=== PATIENT | female | born 1960 | race Caucasian/White ===

== ENCOUNTER 2016-12-25 21:38 | Emergency (ER) | payer OTHER ==
[~2016-12-25] VITALS: Ht 162.6 cm; Wt 143.5 kg
[~2016-12-25 21:38] MED LIST: CLOB-65 EXT; ROPI0.25 PO; SERT-234 PO; SYN150 PO; TRAZ50TA35 PO; TRIATAB3 PO
[2016-12-25 21:40] VITALS: TEMP 37; Ht 162.6 cm; Wt 143.5 kg
[2016-12-25 22:48] LABS: BASO % 0.2 %; BASO ABS # 0.02 K/uL (0-0.2); COMPLETE YES; EOS % 2.1 %; HEMATOCRIT 37.9 % (37-47); IG% 0.3 %; LYMPH % 31.2 %; LYMPH ABS # 2.82 K/uL (1.2-3.4); MEAN CELL VOLUME 89.6 fL (80-100); MEAN CORPUSCULAR HEMOGLOBIN 30.5 pg (25-34); MEAN PLATELET VOLUME 8.9 fL (7.4-10.4); MONO % 8.2 %; PLATELET COUNT 258 K/uL (130-400); RED BLOOD COUNT 4.23 M/uL (4.2-5.4); WHITE BLOOD COUNT 9.04 K/uL (4.8-10.8)
[2016-12-25] MEDS ORDERED: ROSU20TA22 PO (22:50)
[2016-12-25] MEDS ORDERED: WLLSR150 PO (22:50)
[2016-12-25] MEDS ORDERED: GLC500 PO (22:50)
[2016-12-25] MEDS ORDERED: TRAZ100T29 PO (22:50)
[2016-12-25 22:59] LABS: POINT OF CARE TROPONIN I < 0.030 ng/ml (0-0.045)
--- NOTE | 2016-12-25 23:03 | DIAGNOSTIC IMAGING REPORT ---
CHEST ONE VIEW PORTABLE HISTORY: Atypical CHEST PAIN COMPARISON: Chest 02/26/2015. FINDINGS: The lungs are clear. Cardiac silhouette is normal in size. No pleural effusions. No pneumothorax. Small retrocardiac lobular density favors a hiatus hernia. This remains unchanged. IMPRESSION: No significant change compared to the prior study. No acute process. Electronically signed by: Adrian Atkins M.D. 12/25/2016 11:01 PM Dictated Date/Time: 12/25/2016 11:00 PM
[2016-12-25 23:09] LABS: BUN/CREATININE RATIO 17.4 (10-20); CREATININE 0.94 mg/dl (0.60-1.20); POTASSIUM 3.4 mmol/L (3.5-5.1)
[2016-12-25 23:14] LABS: CKMB/CK RATIO 1.2 (0-3.0)
[2016-12-25 23:58] VITALS: PULSE 84; O2SAT 96
[2016-12-26 00:01] VITALS: BP 111/57
--- NOTE | 2016-12-26 02:21 | EMERGENCY ROOM VISIT NOTE ---
History Report prepared by Demetriaibyon: Katya Richardson Under the Supervision of: Dr. Jesus Massey M.D. First contact with patient: 22:20 Chief Complaint: SHOULDER PAIN Stated Complaint: NAUSEA,DIZZY,UNDER SHOULDER BLADE History of Present Illness The patient is a 56 year old female who presents to the Emergency Room with complaints of waxing and waning left shoulder pain for the past 2 days. She rates her discomfort as a 5/10 in severity and reports the pain radiates into her left upper back. She denies any recent trauma or injuries but admits she did [place] an airport [place]. She denies any personal cardiac history but admits to a family history of cardiac problems. Her Father at 61 of heart disease, and her Mother at 61 from a CVA. The patient states she became nauseous and dizzy this evening, so she decided to come to the ED for a cardiac workup considering her family history. She also complains of a cough, but states she has had this for "months". The patient denies LOC, headache, fevers, chills, diaphoresis, visual changes, neck pain, chest pain, breathing difficulties, nausea, vomiting, abdominal pain, back pain, melena, hematochezia, urinary symptoms, numbness, weakness, lymphadenopathy, rash, or other complaints. 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 A total of ten systems were reviewed and were otherwise negative. Past Medical & Surgical Medical Problems: (1) Diabetes mellitus (2) Hypercholesteremia (3) Hypertension Family History Heart disease Stroke Social History Smoking Status: Never Smoker Alcohol Use: occasionally Drug Use: none Marital Status: Housing Status: lives with family Occupation Status: retired Current/Historical Medications Scheduled Bupropion HCl (Bupropion HCl Sr), 150 MG PO BID Levothyroxine Sodium (Synthroid), 150 MCG PO DAILY Metformin HCl (Metformin HCl), 500 MG PO BID Ropinirole (Requip), 0.25 MG PO QID Rosuvastatin Calcium (Rosuvastatin Calcium), 20 MG PO HS Trazodone Hcl (Trazodone), 100 MG PO HS Triamterene/Hctz (Triamterene/Hctz 37.5-25MG), 1-2 TAB PO DAILY Allergies Coded Allergies: No Known Allergies (Unverified , 12/25/16) Physical Exam Vital Signs Date Time Temp Pulse Resp B/P (MAP) Pulse Ox O2 Delivery O2 Flow Rate FiO2 12/26/16 00:01 111/57 12/25/16 23:58 84 24 96 12/25/16 23:43 74 19 97 12/25/16 23:31 115/65 12/25/16 23:28 77 16 98 12/25/16 23:13 77 20 96 12/25/16 23:08 74 17 98 12/25/16 23:01 109/71 12/25/16 22:53 78 19 97 12/25/16 22:38 76 20 96 12/25/16 22:31 130/75 12/25/16 22:23 83 19 97 Room Air 12/25/16 22:20 77 12/25/16 22:17 125/69 12/25/16 21:40 37.0 98 18 139/87 97 Room Air Physical Exam GENERAL: Awake, alert, well-appearing, in no distress HENT: Normocephalic, atraumatic. Oropharynx unremarkable. EYES: Normal conjunctiva. Sclera non-icteric. NECK: Supple. No nuchal rigidity. FROM. No JVD. RESPIRATORY: Clear to auscultation. CARDIAC: Regular rate, normal rhythm. Extremities warm and well perfused. Pulses equal. ABDOMEN: Soft, non-distended. No tenderness to palpation. No rebound or guarding. No masses. RECTAL: Deferred. MUSCULOSKELETAL: Chest examination reveals no tenderness. The back is symmetrical on inspection without obvious abnormality. Tenderness to the left mid thoracic paraspinal muscles. Range of motion testing of the left shoulder elicits pain in the left rhomboid area. There is no CVA tenderness to palpation. No joint edema. LOWER EXTREMITIES: Calves are equal size bilaterally and non-tender. No edema. No discoloration. NEURO: Normal sensorium. No sensory or motor deficits noted. SKIN: No rash or jaundice noted. No zoster. Medical Decision & Procedures ER Provider Diagnostic Interpretation: Radiology results as stated below per my review and radiologist interpretation: CHEST ONE VIEW PORTABLE HISTORY: Atypical CHEST PAIN COMPARISON: Chest 02/26/2015. FINDINGS: The lungs are clear. Cardiac silhouette is normal in size. No pleural effusions. No pneumothorax. Small retrocardiac lobular density favors a hiatus hernia. This remains unchanged. IMPRESSION: No significant change compared to the prior study. No acute process. Electronically signed by: Adrian Atkins M.D. 12/25/2016 11:01 PM Laboratory Results 12/25/16 22:25 Red Blood Count 4.23, Mean Corpuscular Volume 89.6, Mean Corpuscular Hemoglobin 30.5, Mean Corpuscular Hemoglobin Concent 34.0, Mean Platelet Volume 8.9, Neutrophils (%) (Auto) 58.0, Lymphocytes (%) (Auto) 31.2, Monocytes (%) (Auto) 8.2, Eosinophils (%) (Auto) 2.1, Basophils (%) (Auto) 0.2, Neutrophils # (Auto) 5.24, Lymphocytes # (Auto) 2.82, Monocytes # (Auto) 0.74, Eosinophils # (Auto) 0.19, Basophils # (Auto) 0.02 12/25/16 22:25 Test 12/25/16 22:25 12/25/16 22:40 White Blood Count 9.04 K/uL (4.8-10.8) Red Blood Count 4.23 M/uL (4.2-5.4) Hemoglobin 12.9 g/dL (12.0-16.0) Hematocrit 37.9 % (37-47) Mean Corpuscular Volume 89.6 fL (80-100) Mean Corpuscular Hemoglobin 30.5 pg (25-34) Mean Corpuscular Hemoglobin Concent 34.0 g/dl (32-36) Platelet Count 258 K/uL (130-400) Mean Platelet Volume 8.9 fL (7.4-10.4) Neutrophils (%) (Auto) 58.0 % Lymphocytes (%) (Auto) 31.2 % Monocytes (%) (Auto) 8.2 % Eosinophils (%) (Auto) 2.1 % Basophils (%) (Auto) 0.2 % Neutrophils # (Auto) 5.24 K/uL (1.4-6.5) Lymphocytes # (Auto) 2.82 K/uL (1.2-3.4) Monocytes # (Auto) 0.74 K/uL (0.11-0.59) Eosinophils # (Auto) 0.19 K/uL (0-0.5) Basophils # (Auto) 0.02 K/uL (0-0.2) RDW Standard Deviation 45.0 fL (36.4-46.3) RDW Coefficient of Variation 13.7 % (11.5-14.5) Immature Granulocyte % (Auto) 0.3 % Immature Granulocyte # (Auto) 0.03 K/uL (0.00-0.02) Anion Gap 8.0 mmol/L (3-11) Est Creatinine Clear Calc Drug Dose 92.9 ml/min Estimated GFR () 77.5 Estimated GFR (Non- 66.9 BUN/Creatinine Ratio 17.4 (10-20) Calcium Level 9.0 mg/dl (8.5-10.1) Total Bilirubin 0.4 mg/dl (0.2-1) Direct Bilirubin 0.1 mg/dl (0-0.2) Aspartate Amino Transf (AST/SGOT) 16 U/L (15-37) Alanine Aminotransferase (ALT/SGPT) 24 U/L (12-78) Alkaline Phosphatase 80 U/L (45-117) Total Creatine Kinase 113 U/L (26-192) Creatine Kinase MB 1.3 ng/ml (0.5-3.6) Creatine Kinase MB Ratio 1.2 (0-3.0) Total Protein 7.1 gm/dl (6.4-8.2) Albumin 3.5 gm/dl (3.4-5.0) Lipase 160 U/L (73-393) Bedside D-Dimer 194 ng/mlFEU (0-450) Bedside Troponin I < 0.030 ng/ml (0-0.045) Laboratory results reviewed by me ECG Indication: back/shoulder pain Rate (beats per minute): 83 Rhythm: normal sinus Findings: no acute ischemic change, no ectopy ED Course 2230: The patient was evaluated in room A2. A complete history and physical exam was performed. 2348: I reevaluated the patient. She feels well and is ready to go home. I discussed her results and discharge instructions and she verbalized complete understanding and agreement. Medical Decision Triage Nursing notes reviewed. The patient's presentation and history were concerning for left-sided back pain and a family history of coronary disease. Etiologies such as cardiac ischemia, aortic dissection, pulmonary embolism, pneumonia, pneumothorax, musculoskeletal, infections, gastrointestinal, as well as others were entertained. The patient was evaluated. She had in her musculature on physical examination. ECG was performed and was unremarkable. Chest x-ray was negative. The patient has had symptoms that were constant for several days. Blood work was obtained. This was unremarkable. A d-dimer was negative. Cardiac biomarkers were negative. Given the duration of symptoms, negative laboratory testing, and her physical examination this appears to be musculoskeletal. I discussed conservative management with the patient. She felt much relief after her tests were negative. She will take it easy. She will follow-up closely in the office. If she worsens in any way or any new symptoms develop she will be back. I gave my usual and customary discussion regarding this issue. By the evaluation outlined above other emergent etiologies such as those listed in the differential, as well as others, were deemed relatively unlikely. The patient was educated about the findings as listed above. All questions were answered and the patient was pleased with the treatment. Return instructions were outlined and the patient was discharged in stable condition. The patient was referred to her PCP for follow-up for a recheck of the current condition. Medication Reconcilliation Current Medication List: was personally reviewed by me Blood Pressure Screening Patient's blood pressure: Normal blood pressure Blood pressure disposition: Did not require urgent referral Impression Primary Impression: Upper back pain on left side Scribe Attestation The scribe's documentation has been prepared under my direction and personally reviewed by me in its entirety. I confirm that the note above accurately reflects all work, treatment, procedures, and medical decision making performed by me. Departure Information Dispostion Home / Self-Care Referrals Kevin Sagastume, D.O. (PCP) Patient Instructions [facility] Additional Instructions Warm compresses for 20 minutes at a time four times daily for 2-3 days. Ibuprofen(Motrin, Advil) may be used for fever or pain. Use 600mg every six hours as needed. Take with food. Avoid using more than 2400mg in a 24 hour period. Do not use 2400mg per day for more than three consecutive days without physician direction. Prolonged inappropriate use can lead to stomach upset or ulcers. (AND/OR) Acetaminophen(Tylenol) may be used for fever or pain. Use 1000mg every six hours as needed. Avoid using more than 4000mg in a 24 hour period. Rest and drink plenty of fluids as tolerated. Continue current medications. Avoid strenuous activities and anything that worsens your pain. Resume normal activities once your symptoms resolve. Return to the ER immediately for worsening or persistent chest pain, abdominal pain, vomiting, fevers, chest pains, rash, difficulty breathing, worsening of your condition, or as needed. Follow up with your primary physician in 2-3 days for a recheck of your current condition.
== END 2016-12-26 00:13 | disposition home or self-care (01) ==
LOC: C.EDB 21:39 → C.EDA 12-26 00:13
DX: M54.6 Pain in thoracic spine (principal); R42 Dizziness and giddiness; E11.9 Type 2 diabetes mellitus without complications; I10 Essential (primary) hypertension; E78.00 Pure hypercholesterolemia, unspecified; Z82.3 Family history of stroke; Z79.84 Long term (current) use of oral hypoglycemic drugs; Z79.899 Other long term (current) drug therapy

== ENCOUNTER → 2017-06-15 | Day surgery (SDC) | payer BC, OTHER ==
[2017-06-07 14:43] VITALS: BMI 87.0
--- NOTE | 2017-06-07 15:11 | PAT Medication Instructions ---
Service Date Jun 07, 2017. Current Home Medication List Aspirin (Aspirin Ec), 81 MG PO QAM Vvjhccz-Gbtyfoptqojnp-Macmgzeg (Pamprin Max), 1 TAB PO QD PRN for Migraine Bupropion HCl (Bupropion HCl Sr), 150 MG PO BID Levothyroxine Sodium (Synthroid), 150 MCG PO QAM Metformin HCl (Metformin HCl), 500 MG PO BID Naproxen (Aleve), 440 MG PO QD PRN for Pain Ropinirole (Requip), 5 MG PO BID Rosuvastatin Calcium (Rosuvastatin Calcium), 20 MG PO HS Sertraline (Zoloft), 100 MG PO QAM Trazodone Hcl (Trazodone), 100 MG PO HS Triamterene/Hctz (Triamterene/Hctz 37.5-25MG), 1 TAB PO QAM Medication Instructions For Your Scheduled Surgery -Contact your surgeon for instructions for: Aspirin (Aspirin Ec), 81 MG PO QAM Qjxgaqq-Cqxbdcbogpdaf-Xohikfdg (Pamprin Max), 1 TAB PO QD PRN for Migraine Naproxen (Aleve), 440 MG PO QD PRN for Pain - Hold the following medications 24 hours prior to surgery: Ropinirole (Requip), 5 MG PO BID - Hold the following medications the morning of surgery: Metformin HCl (Metformin HCl), 500 MG PO BID Triamterene/Hctz (Triamterene/Hctz 37.5-25MG), 1 TAB PO QAM - Take the following medications the morning of surgery with a sip of water: Bupropion HCl (Bupropion HCl Sr), 150 MG PO BID Levothyroxine Sodium (Synthroid), 150 MCG PO QAM Sertraline (Zoloft), 100 MG PO QAM - Take the following medications as scheduled the night before surgery: Bupropion HCl (Bupropion HCl Sr), 150 MG PO BID Metformin HCl (Metformin HCl), 500 MG PO BID Rosuvastatin Calcium (Rosuvastatin Calcium), 20 MG PO HS Trazodone Hcl (Trazodone), 100 MG PO HS If you have any questions please call us at [phone] or [phone] or [phone]
[2017-06-07 16:09] LABS: BASO % 0.2 %; BASO ABS # 0.01 K/uL (0-0.2); EOS % 2.6 %; EOS ABS # 0.15 K/uL (0-0.5); HEMATOCRIT 38.4 % (37-47); HEMOGLOBIN 12.9 g/dL (12.0-16.0); IG# 0.03 K/uL (0.00-0.02); LYMPH % 36.7 %; LYMPH ABS # 2.11 K/uL (1.2-3.4); MEAN CELL VOLUME 89.9 fL (80-100); MEAN CORPUSCULAR HEMOGLOBIN 30.2 pg (25-34); MEAN CORPUSCULAR HGB CONC 33.6 g/dl (32-36); MEAN PLATELET VOLUME 9.1 fL (7.4-10.4); MONO % 5.2 %; NEUT % 54.8 %; NEUT ABS # 3.15 K/uL (1.4-6.5); PLATELET COUNT 261 K/uL (130-400); RED CELL DISTRIBUTION WIDTH CV 13.5 % (11.5-14.5); RED CELL DISTRIBUTION WIDTH SD 44.3 fL (36.4-46.3); WHITE BLOOD COUNT 5.75 K/uL (4.8-10.8)
[2017-06-07 16:48] LABS: CALCIUM 8.3 mg/dl (8.5-10.1); CREATININE 0.95 mg/dl (0.60-1.20); POTASSIUM 3.6 mmol/L (3.5-5.1)
[~2017-06-15] VITALS: Ht 162.6 cm; Wt 152.1 kg
[~2017-06-15] MED LIST changes: +ASPI81TA28 PO; +ASPITAB PO; +ATROPINE SULFATE 0.1 MG/ML 5ML SYR IV PRN; -CLOB-65 EXT; +DEXAMETHASONE SOD INJ 4 MG/ML VIAL ONE; +EpHEDrine SULFATE INJ 50 MG/ML AMP IV PRN; +FENTANYL CITRATE INJ 50 MCG/1 ML 2 ML VIAL IV PRN; +FENTANYL CITRATE INJ 50 MCG/1 ML 2 ML VIAL ONE; +GLC500 PO; +HYDROmorphone INJ 2 MG/ML SYR/VIAL IV PRN; +IBUP600T44 PO; +IBUPROFEN 600 MG TAB PO PRN; +KETOROLAC TROMETHAMINE 30 MG/ML VIAL ONE; +LABETALOL HCL IV 5 MG/ML 20ML IV PRN; +LACTATED RINGER'S 1000ML 1,000 ML IV SCH; +LIDOCAINE HCL 2% 2 ML VIAL (20MG/ML) ONE; +MIDAZOLAM HCL 1 MG/ML 2ML VIAL ONE; +NAPR1TAB9 PO; +ONDANSETRON INJ 2 MG/ML 2 ML VIAL IV PRN; +ONDANSETRON INJ 2 MG/ML 2 ML VIAL ONE; +OXYCODONE/ACETAMINOPHEN 5-325 TAB PO PRN; +PHENYLEPHRINE 100MCG/ML 5ML SYR IV PRN; +PROMETHAZINE HCL INJ 12.5 MG in SODIUM CHLORIDE 0.9% 50ML 50 ML IV PRN; +PROPOFOL IV EMULSION 10 MG/ML 20 ML VIAL IV ONE; +ROCURONIUM BROMIDE 10 MG/ML 5 ML VIAL IV ONE; +ROSU20TA33 PO; +SODIUM CHLORIDE 0.9% 1000ML 1,000 ML IV SCH; +SUCCINYLCHOLINE CHLORIDE 20 MG/ML 10 ML VIAL IV ONE; +TRAZ100T29 PO; -TRAZ50TA35 PO; +WLLSR150 PO
[2017-06-15 05:38] VITALS: BP 152/67; PULSE 70; TEMP 36.8; O2SAT 96; Ht 162.6 cm; Wt 152.1 kg
[2017-06-15 06:11] LABS: HEMATOCRIT 38.3 % (37-47); HEMOGLOBIN 12.6 g/dL (12.0-16.0); MEAN CELL VOLUME 89.3 fL (80-100); MEAN CORPUSCULAR HEMOGLOBIN 29.4 pg (25-34); MEAN PLATELET VOLUME 8.8 fL (7.4-10.4); PLATELET COUNT 234 K/uL (130-400); RED CELL DISTRIBUTION WIDTH CV 13.5 % (11.5-14.5); RED CELL DISTRIBUTION WIDTH SD 44.4 fL (36.4-46.3); WHITE BLOOD COUNT 6.24 K/uL (4.8-10.8)
[2017-06-15 06:16] LABS: MEAN CORPUSCULAR HGB CONC 32.9 g/dl (32-36)
--- NOTE | 2017-06-15 06:51 | History & Physical Bridge Note ---
H&P Re-Evaluation Bridge Note: I have examined the patient, reviewed the History & Physical and in the interval since the performance of the History & Physical I have noted the following changes of clinical significance: No changes noted
--- NOTE | 2017-06-15 07:40 | [facility] Post Operative Brief Note ---
Immediate Operative Summary Operative Date Jun 15, 2017. Pre-Operative Diagnosis -Postmenopausal bleeding -thickened endometrium -complex hyperplasia with atypia Post-Operative Diagnosis -Postmenopausal bleeding -thickened endometrium -complex hyperplasia with atypia -endometrial polyps Procedure(s) Performed Hysteroscopy, Dilation Curettage, Myosure Polypectomy Surgeon Dr. Mike Hernandez [employer] Supervisor Surgeon(s) none Estimated Blood Loss 5ml Findings Consistent with Post-Op Diagnosis Fluids (cc crystalloids) 600 Specimens Permanent Specimen: A.) Endometrial Polyps B.) Endometrial Curretting Drains None Anesthesia Type General Complication(s) none Disposition Accompanied Pt To Recover: no Disposition: Recovery Room / PACU
--- NOTE | 2017-06-15 07:44 | Discharge Instructions ---
Discharge Instructions Date of Service Jun 15, 2017. Visit Reason for Visit: Complex Hyperplasia With Atypia Discharge Discharge Diagnosis / Problem: s/p D&C, hysteroscopy, polypectomy Discharge Goals Goal(s): Decrease discomfort Activity Recommendations Activity Limitations: per Instructions/Follow-up section Anesthesia . Post Anesthesia Instructions: If you have had General Anesthesia or IV Sedation: * Do not drive today. * Resume driving when surgeon permits. * Do not make important decisions or sign legal documents today. * Call surgeon for: 1. Temperature elevations greater than 101 degrees F. 2. Uncontrollable pain. 3. Excessive bleeding. 4. Persistent nausea and vomiting. 5. Medication intolerance (nausea, vomiting or rash). * For nausea and vomiting use only clear liquids such as: tea, soda, bouillon until nausea subsides, then gradually increase diet as tolerated. * If you have any concerns or questions, call your surgeon's office. If physician is unavailable and it is an emergency, call 911 or go to the nearest emergency room. . Instructions / Follow-Up Instructions / Follow-Up ACTIVITY RECOMMENDATIONS: * Avoid tampons, douching, hot tubs, pools, and intercourse until bleeding has stopped. * May shower as usual. * No strenuous activity for 24-48 hours. After 24-48 hours, you can do anything you feel like doing (driving and sports are okay). RETURN TO SCHOOL/WORK: * You may return to school or work after 24 hours unless specified by your physician. DIET: * Resume previous diet. MEDICATIONS: Resume previous medications unless instructed otherwise by your surgeon. Ibuprofen 200mg 2-3 tablets every 4-6 hours as needed --OR-- Aleve 2 tablets every 8-12 hours as needed for post-operative discomfort Medications are over the counter. Tylenol may be used if above medications are contraindicated or not preferred. Medication should be taken with food or milk. do not take on an empty stomach. SPECIAL CARE INSTRUCTIONS: * Check temperature twice daily for one week. Report any elevation over 101 degrees. * Call office if you experience increased pelvic pain or discomfort not relieved by pain medicine, if you have foul smelling vaginal discharge, if you have bleeding that is heavier than a normal menstrual flow. If you are changing a maxi pad every 1- 2 hours, this is too heavy. vaginal spotting is normal for 1-2 weeks. FOLLOW UP VISIT: Call your doctor's office for a post-operative visit. Diet Recommendations Recommended Home Diet: no limitations, resume previous diet Procedures Procedures Performed: Hysteroscopy, Dilation Curettage, Myosure Polypectomy Pending Studies Studies pending at discharge: no Medical Emergencies . Who to Call and When: Medical Emergencies: If at any time you feel your situation is an emergency, please call 911 immediately. . Non-Emergent Contact Non-Emergency issues call your: Primary Care Provider, Supervisory Clerk . . "Provider Documentation" section prepared by Mike Hernandez. .
--- NOTE | 2017-06-15 08:14 | OPERATIVE REPORT ---
DATE OF OPERATION: 06/15/2017 PREOPERATIVE DIAGNOSES: 1. Postmenopausal bleeding. 2. Thickened endometrium. 3. Complex hyperplasia with atypia. POSTOPERATIVE DIAGNOSES: 1. Postmenopausal bleeding. 2. Thickened endometrium. 3. Complex hyperplasia with atypia. 4. Endometrial polyps. OPERATIVE PROCEDURE: Hysteroscopy, dilation and curettage, and MyoSure polypectomy. SURGEON: Dr. Hernandez. PYROTECHNIC ASSEMBLER: None. ANESTHESIA: General. ESTIMATED BLOOD LOSS: 5 mL IV FLUIDS: 600 mL crystalloid. URINE OUTPUT: 50 mL clear yellow urine. SPECIMENS: Endometrial polyps and endometrial curettings to pathology. DRAINS: None. COMPLICATIONS: None. DISPOSITION: Recovery room. OPERATIVE FINDINGS: Upon bimanual exam, uterus was at midline and freely mobile. Bilateral adnexa unable to be palpated due to the patient's habitus. Uterus sounded to 11 cm. Upon hysteroscopic exam, there were anterior and posterior endometrial polyps which were successfully removed using the MyoSure. Bilateral tubal ostia were clearly visualized. There were no submucosal fibroids noted. A moderate amount of endometrial tissue was obtained upon sharp curettage. The endometrial curettings and polyps were sent to pathology. Excellent hemostasis was noted. The patient tolerated the procedure well and was sent to recovery with stable vital signs. OPERATIVE PROCEDURE IN DETAIL: The patient was taken to the operating room where general anesthesia was administered. Once anesthesia was found to be adequate, the patient was placed in dorsal lithotomy position and was prepped and draped in a manner appropriate for the procedure. The bladder was then drained of clear yellow urine. A weighted speculum was then placed into the vagina and the anterior lip of the cervix was grasped with a single tooth tenaculum. The uterus was then sounded to 11 cm. The hysteroscope was then introduced into the endometrial cavity and a thorough examination was then performed. It was noted that there were endometrial polyps located at the anterior fundal wall and posterior wall of the cavity. MyoSure tool was then introduced into the cavity and the polyps were removed with the MyoSure tool. Once the polyps were removed, the hysteroscope and MyoSure were removed from the endometrial cavity. Utilizing Sona dilators, the cervix was then dilated further, and utilizing a medium Johnson curette, a thorough curettage of the endometrial cavity was performed, obtaining a moderate amount of endometrial tissue which was sent to pathology. At this point, the procedure was found to be complete. All instruments were removed from the vagina. Excellent hemostasis was noted. All sponge and instrument counts were found to be correct x2. The patient tolerated the procedure well and was sent to recovery with stable vital signs. I attest to the content of the Intraoperative Record and any orders documented therein. Any exception s are noted below.
--- NOTE | 2017-06-15 08:33 | Anesthesiology Progress Note ---
Anesthesia Post Op Note Date & Time Jun 15, 2017 at 08:33 Vital Signs Pain Intensity: 0 Vital Signs Past 12 Hours Date Time Temp Pulse Resp B/P (MAP) Pulse Ox O2 Delivery O2 Flow Rate FiO2 06/15/17 08:30 36.1 74 18 130/75 94 Room Air 06/15/17 08:20 75 22 130/73 93 Room Air 06/15/17 08:10 71 18 116/69 99 Oxymask 10 06/15/17 08:00 75 20 124/79 96 Oxymask 10 06/15/17 07:50 36.2 81 21 172/94 94 Oxymask 10 06/15/17 05:38 36.8 70 18 152/67 (95) 96 Room Air Notes Mental Status: alert / awake / arousable, participated in evaluation Pt Amnestic to Procedure: Yes Nausea / Vomiting: adequately controlled Pain: adequately controlled Airway Patency, RR, SpO2: stable & adequate BP & HR: stable & adequate Hydration State: stable & adequate Anesthetic Complications: no major complications apparent Awake, doing well, no complaints. VSS.
[2017-06-15 08:35] VITALS: BP 141/65; PULSE 72; TEMP 36.5; O2SAT 91
[2017-06-15 09:05] VITALS: BP 132/56; PULSE 71; O2SAT 93
[2017-06-15 09:35] VITALS: BP 137/67; PULSE 76; TEMP 37; O2SAT 95
== END | disposition home or self-care (01) ==
LOC: C.ACU 04:47
PROVIDERS: ATTEND Obstetrics & Gynecology
DX: N95.0 Postmenopausal bleeding (principal); N85.02 Endometrial intraepithelial neoplasia [EIN]; N84.0 Polyp of corpus uteri; R93.8 Abnormal findings on diagnostic imaging of other specified body structures; F32.9 Major depressive disorder, single episode, unspecified; I10 Essential (primary) hypertension; E03.9 Hypothyroidism, unspecified; G47.33 Obstructive sleep apnea (adult) (pediatric); M19.90 Unspecified osteoarthritis, unspecified site; G25.81 Restless legs syndrome; Z80.49 Family history of malignant neoplasm of other genital organs; Z83.3 Family history of diabetes mellitus; Z82.49 Family history of ischemic heart disease and other diseases of the circulatory system; Z79.899 Other long term (current) drug therapy; Z79.84 Long term (current) use of oral hypoglycemic drugs

== ENCOUNTER 2017-07-27 08:20 | Inpatient (IN) | payer BC, OTHER ==
[2017-07-12 10:16] VITALS: BMI 57.0
[~2017-07-27] VITALS: Ht 162.6 cm; Wt 152.0 kg
[2017-07-27] VITALS (8 sets, daily range): BP systolic 103–153; BP diastolic 60–83; PULSE 60–100; TEMP 36.3–36.8; O2SAT 90–97; Ht 162.6 cm; Wt 152.0 kg
[~2017-07-27 08:20] MED LIST changes: -ATROPINE SULFATE 0.1 MG/ML 5ML SYR IV PRN; +CEFAZOLIN 3000MG IV PUSH 22.5 ML IV SCH; -DEXAMETHASONE SOD INJ 4 MG/ML VIAL ONE; -EpHEDrine SULFATE INJ 50 MG/ML AMP IV PRN; -FENTANYL CITRATE INJ 50 MCG/1 ML 2 ML VIAL IV PRN; -FENTANYL CITRATE INJ 50 MCG/1 ML 2 ML VIAL ONE; -HYDROmorphone INJ 2 MG/ML SYR/VIAL IV PRN; -IBUP600T44 PO; -IBUPROFEN 600 MG TAB PO PRN; -KETOROLAC TROMETHAMINE 30 MG/ML VIAL ONE; -LABETALOL HCL IV 5 MG/ML 20ML IV PRN; -LIDOCAINE HCL 2% 2 ML VIAL (20MG/ML) ONE; -MIDAZOLAM HCL 1 MG/ML 2ML VIAL ONE; -NAPR1TAB9 PO; -ONDANSETRON INJ 2 MG/ML 2 ML VIAL IV PRN; -ONDANSETRON INJ 2 MG/ML 2 ML VIAL ONE; -OXYCODONE/ACETAMINOPHEN 5-325 TAB PO PRN; -PHENYLEPHRINE 100MCG/ML 5ML SYR IV PRN; -PROMETHAZINE HCL INJ 12.5 MG in SODIUM CHLORIDE 0.9% 50ML 50 ML IV PRN; -PROPOFOL IV EMULSION 10 MG/ML 20 ML VIAL IV ONE; -ROCURONIUM BROMIDE 10 MG/ML 5 ML VIAL IV ONE; -SODIUM CHLORIDE 0.9% 1000ML 1,000 ML IV SCH; -SUCCINYLCHOLINE CHLORIDE 20 MG/ML 10 ML VIAL IV ONE
[2017-07-27] MEDS ORDERED: ACETAMINOPHEN 1000 MG/100 ML IV IV ONE (08:58)
[2017-07-27 09:32] LABS: BASO % 0.4 %; BASO ABS # 0.02 K/uL (0-0.2); EOS % 2.3 %; EOS ABS # 0.13 K/uL (0-0.5); HEMATOCRIT 39.7 % (37-47); HEMOGLOBIN 13.1 g/dL (12.0-16.0); IG# 0.01 K/uL (0.00-0.02); LYMPH % 32.3 %; LYMPH ABS # 1.79 K/uL (1.2-3.4); MEAN CELL VOLUME 89.4 fL (80-100); MEAN CORPUSCULAR HEMOGLOBIN 29.5 pg (25-34); MEAN PLATELET VOLUME 8.9 fL (7.4-10.4); MONO % 7.2 %; NEUT % 57.6 %; NEUT ABS # 3.19 K/uL (1.4-6.5); PLATELET COUNT 225 K/uL (130-400); RED CELL DISTRIBUTION WIDTH CV 13.2 % (11.5-14.5); RED CELL DISTRIBUTION WIDTH SD 42.8 fL (36.4-46.3); WHITE BLOOD COUNT 5.54 K/uL (4.8-10.8)
[2017-07-27] MEDS ORDERED: ONDANSETRON INJ 2 MG/ML 2 ML VIAL IV PRN ×2 (09:45→13:30)
[2017-07-27] MEDS ORDERED: EpHEDrine SULFATE INJ 50 MG/ML AMP IV PRN (09:45)
[2017-07-27] MEDS ORDERED: ATROPINE SULFATE 0.1 MG/ML 5ML SYR IV PRN (09:45)
[2017-07-27] MEDS ORDERED: FENTANYL CITRATE INJ 50 MCG/1 ML 2 ML VIAL IV PRN (09:45)
[2017-07-27] MEDS ORDERED: FENTANYL CITRATE INJ 50 MCG/1 ML 2 ML VIAL ONE (10:03)
[2017-07-27] MEDS ORDERED: MIDAZOLAM HCL 1 MG/ML 2ML VIAL ONE (10:03)
[2017-07-27] MEDS ORDERED: BUPIVACAINE 0.5 % 5 MG/1 ML MPF 30ML VIAL ONE (10:31)
[2017-07-27] MEDS ORDERED: MINERAL OIL LIGHT 10 ML BTL ONE (10:31)
[2017-07-27] MEDS ORDERED: HYDROmorphone INJ 2 MG/ML SYR/VIAL ONE (11:31)
[2017-07-27] MEDS ORDERED: ROCURONIUM BROMIDE 10 MG/ML 5 ML VIAL ONE (11:41)
[2017-07-27] MEDS ORDERED: EpHEDrine SULFATE 50MG/5ML SYR ONE (11:41)
[2017-07-27] MEDS ORDERED: DEXAMETHASONE SOD INJ 4 MG/ML VIAL ONE (11:41)
[2017-07-27] MEDS ORDERED: GLYCOPYRROLATE INJ 0.2 MG/ML VIAL ONE ×2 (11:41→13:16)
[2017-07-27] MEDS ORDERED: LIDOCAINE HCL 2% 2 ML VIAL (20MG/ML) ONE (11:41)
[2017-07-27] MEDS ORDERED: ONDANSETRON INJ 2 MG/ML 2 ML VIAL ONE ×2 (11:41→13:03)
[2017-07-27] MEDS ORDERED: PROPOFOL IV EMULSION 10 MG/ML 20 ML VIAL ONE ×2 (11:41→11:43)
[2017-07-27] MEDS ORDERED: METHYLENE BLUE 0.5% 10 ML VIAL ONE (12:28)
[2017-07-27] MEDS ORDERED: NEOSTIGMINE METHYLSULFATE 5 MG/5 ML SYR ONE (13:16)
--- NOTE | 2017-07-27 13:24 | [facility] Post Operative Brief Note ---
Immediate Operative Summary Operative Date July 27, 2017. Pre-Operative Diagnosis Post menopausal uterine bleeding, Complex endometrial Hyperplasia with atypia Post-Operative Diagnosis Same Procedure(s) Performed Total Laparoscopic Hysterectomy with Bilateral Salpingo-Oophorectomy; Cystoscopy Surgeon Dr Hernandez Certified Nurse Practitioner Surgeon(s) Dr Ricci/ Dr Huston Estimated Blood Loss 50ML Findings Consistent with Post-Op Diagnosis Fluids (cc crystalloids) 1300 Specimens A. uterus, bilateral fallopian tubes and ovaries, cervix Drains Perera To Galliano Anesthesia Type General Complication(s) none Disposition Accompanied Pt To Recover: no Disposition: Recovery Room / PACU
[2017-07-27] MEDS ORDERED: IBUPROFEN 600 MG TAB PO PRN (13:30)
[2017-07-27] MEDS ORDERED: SENNA 8.6 MG TAB PO PRN (13:30)
[2017-07-27] MEDS ORDERED: OXYCODONE/ACETAMINOPHEN 5-325 TAB PO PRN (13:30)
[2017-07-27] MEDS ORDERED: BISACODYL 10 MG SUPP PR PRN (13:30)
[2017-07-27] MEDS ORDERED: MEPERIDINE HCL 50 MG/ML CARP IV PRN ×2 (13:30)
[2017-07-27] MEDS ORDERED: KETOROLAC TROMETHAMINE 30 MG/ML VIAL IV. PRN (13:30)
[2017-07-27] MEDS ORDERED: MAGNESIUM HYDROXIDE SUSP 30 ML UDC PO PRN (13:30)
--- NOTE | 2017-07-27 14:14 | Anesthesiology Progress Note ---
Anesthesia Post Op Note Date & Time July 27, 2017 at 14:14 Vital Signs Pain Intensity: 0 Vital Signs Past 12 Hours Date Time Temp Pulse Resp B/P (MAP) Pulse Ox O2 Delivery O2 Flow Rate FiO2 07/27/17 14:04 63 24 95 07/27/17 14:04 63 24 07/27/17 13:59 61 17 100 07/27/17 13:59 60 17 07/27/17 13:56 148/70 07/27/17 13:54 61 20 07/27/17 13:54 61 20 97 07/27/17 13:53 60 18 07/27/17 13:53 62 18 98 07/27/17 13:51 137/79 07/27/17 13:48 60 12 07/27/17 13:48 60 12 156/82 97 07/27/17 13:43 69 12 07/27/17 13:43 73 12 97 07/27/17 13:41 141/74 07/27/17 13:38 155/85 07/27/17 13:38 36.0 74 16 155/85 96 Oxymask 10 07/27/17 09:03 36.8 64 18 140/82 (101) 97 Room Air Notes Mental Status: alert / awake / arousable, participated in evaluation Pt Amnestic to Procedure: Yes Nausea / Vomiting: adequately controlled Pain: adequately controlled Airway Patency, RR, SpO2: stable & adequate BP & HR: stable & adequate Hydration State: stable & adequate Anesthetic Complications: no major complications apparent
--- NOTE | 2017-07-27 14:34 | OPERATIVE REPORT ---
DATE OF OPERATION: 07/27/2017 PREOPERATIVE DIAGNOSES: 1. Postmenopausal uterine bleeding. 2. Complex endometrial hyperplasia with atypia. POSTOPERATIVE DIAGNOSES: 1. Postmenopausal uterine bleeding. 2. Complex endometrial hyperplasia with atypia. OPERATIVE PROCEDURE: Total laparoscopic hysterectomy with bilateral salpingo-oophorectomy and cystoscopy. SURGEON: Mike Hernandez DO ASSISTANTS: Kb Ricci M.D. and Joslyn Huston M.D. ANESTHESIA: General. ESTIMATED BLOOD LOSS: 50 mL. IV FLUIDS: 1300 mL crystalloids. URINE OUTPUT: 250 mL clear yellow urine. SPECIMENS: Cervix, uterus and bilateral fallopian tubes and ovaries. DRAINS: Perera to gravity. COMPLICATIONS: None. DISPOSITION: To Recovery room. OPERATIVE FINDINGS: Upon laparoscopic examination, uterus midline and freely mobile. Bilateral tubes and ovaries were grossly normal. The cervix, uterus and bilateral tubes and ovaries were successfully removed laparoscopically. Once the vaginal cuff was closed, the Anesthesia was instructed to push methylene blue. A cystoscopy was performed noting no injury to the bladder wall. Bilateral ureteral openings spilled blue-tinged urine indicating bilateral ureters were intact. The patient tolerated the procedure well and was sent to recovery with stable vital signs. OPERATIVE PROCEDURE IN DETAIL: The patient was taken to the operating room where general anesthesia was administered. Once the anesthesia was found to be adequate, the patient was placed in a dorsal lithotomy position and was prepped and draped in a manner appropriate for the procedure. A weighted speculum was then placed into vagina and the anterior lip of the cervix was grasped with a single tooth tenaculum. A large VCare uterine manipulator was then placed within the uterus in an anteverted fashion and was suture ligated to the cervix at the 12 o'clock and 6 o'clock position with 0 Vicryl suture. Once the VCare was then placed, all instruments were removed from the vagina, a sterile Perera catheter was placed within the bladder and remained indwelling throughout the entire procedure. At this point, the patient was ready for laparoscopic portion of procedure. Attention was directed towards the abdomen where 0.5% Marcaine was injected below the umbilicus and an 11 mm skin incision was made in a horizontal fashion. A Veress needle was then placed within the abdomen. Normal saline was injected with no fecal content aspirated. Pneumoperitoneum was then created. The Veress needle was then removed and a 12-mm trocar was then placed in the abdomen under direct laparoscopic visualization. The patient was then placed in a steep Trendelenburg position and the bowel was displaced superiorly away from the pelvis. A second 5-mm skin incision was made on the left side of the abdomen and a second 5-mm trocar was placed within the abdomen under direct laparoscopic visualization. A third 11-mm skin incision made on the right side of the abdomen and a third 11-mm trocar was then placed within the abdomen under direct laparoscopic visualization. After all three trocars were in place, a thorough examination of the abdomen and pelvis was then performed. Attention was then directed towards the right adnexa where the right infundibulopelvic ligament was cauterized and transected, continued inferiorly through the round ligament and broad ligament, cauterized and transected as we continued inferiorly. The broad ligament was then and the anterior leaf of the broad ligament was cauterized and transected across the lower uterus. Attention was then directed towards the left adnexa, which likewise the left infundibulopelvic ligament was cauterized and transected, continued inferiorly through the round ligament and broad ligament, cauterized and then transected as we continued inferiorly. The broad ligament was then and the anterior leaf of the broad ligament was cauterized and transected across the lower uterine segment completing the bladder flap. The bladder was then pushed away from the lower uterine segment. Bilateral ascending uterine arteries were cauterized and transected, continued inferiorly through the cardinal-uterosacral complex, cauterizing and transecting as we continued inferiorly. Once we were at the level of the [facility] uterine manipulator, the cervix was amputated circumferentially with the LigaSure. The entire specimen, the cervix, uterus and bilateral tubes and ovaries were removed from the vagina. A sterile glove was then placed within the vagina to maintain a pneumoperitoneum. The vaginal cuff was then closed with 0 Polysorb suture with the EndoStitch laparoscopically in a continuous locking fashion. Excellent hemostasis was noted. Anesthesia was then instructed to push methylene blue. A second layer of 0 Polysorb suture was used to reapproximate the peritoneum in continuous running fashion. The entire pelvis was then copiously irrigated with saline solution. Excellent hemostasis was noted. At this point, all instruments were removed from the abdomen and as much CO2 gas was allowed to percolate through the open cannulas. Attention was then directed towards perineum where the glove was removed from the vagina along with the Perera catheter was removed from the bladder. A cystoscope was then introduced into the bladder and a thorough examination was performed noting no injury or suture within the bladder wall. Bilateral ureteral openings were identified and noted to spill blue-tinged urine indicating bilateral ureters were intact. At this point, the cystoscope was removed. A second sterile Perera catheter was then placed within the bladder. Attention was then redirected towards the abdomen where all three trocars were removed from the abdomen. The fascia of the 11 mm incisions were reapproximated with 0 Vicryl suture in a [id number] interrupted fashion. Skin was then closed with 4-0 Monocryl in a subcuticular fashion. All three incisions were noted to be hemostatic. All sponge, instrument and needle counts found to be correct x2. The patient tolerated the surgery well and was sent to recovery with stable vital signs. I attest to the content of the Intraoperative Record and any orders documented therein. Any exception s are noted below.
[2017-07-27] MEDS ORDERED: LACTATED RINGER'S 1000ML 1,000 ML IV SCH (15:07)
[2017-07-27] MEDS: METFORMIN HCL 500 MG TAB PO SCH (17:09)
[2017-07-27 19:16] LABS: HEMATOCRIT 39.7 % (37-47); HEMOGLOBIN 13.4 g/dL (12.0-16.0)
[2017-07-27] MEDS: MICONAZOLE NITRATE 2% CR 30 GM TUBE EXT SCH (20:23)
[2017-07-27] MEDS: BuPROPion SR 150 MG TABCR PO SCH (20:24)
[2017-07-27] MEDS: ROPINIROLE HCL 0.25 MG TAB PO SCH (20:24)
[2017-07-27] MEDS ORDERED: ROSUVASTATIN CALCIUM 20 MG TAB PO SCH (21:00)
[2017-07-27] MEDS ORDERED: TRAZODONE HCL 100 MG TAB PO SCH (21:00)
[2017-07-28 04:10] VITALS: BP 111/58; PULSE 86; TEMP 37; O2SAT 93
[2017-07-28 06:51] LABS: BASO % 0.1 %; BASO ABS # 0.01 K/uL (0-0.2); EOS % 0.5 %; EOS ABS # 0.05 K/uL (0-0.5); HEMATOCRIT 37.6 % (37-47); HEMOGLOBIN 12.5 g/dL (12.0-16.0); IG# 0.02 K/uL (0.00-0.02); LYMPH % 23.9 %; LYMPH ABS # 2.26 K/uL (1.2-3.4); MEAN CELL VOLUME 90.4 fL (80-100); MEAN CORPUSCULAR HGB CONC 33.2 g/dl (32-36); MEAN PLATELET VOLUME 8.9 fL (7.4-10.4); MONO % 6.5 %; MONO ABS # 0.61 K/uL (0.11-0.59); NEUT % 68.8 %; PLATELET COUNT 245 K/uL (130-400); RED CELL DISTRIBUTION WIDTH CV 13.4 % (11.5-14.5); RED CELL DISTRIBUTION WIDTH SD 43.8 fL (36.4-46.3); WHITE BLOOD COUNT 9.45 K/uL (4.8-10.8)
[2017-07-28] MEDS ORDERED: LEVOTHYROXINE 150 MCG TAB PO SCH (07:00)
[2017-07-28 07:16] LABS: CALCIUM 8.6 mg/dl (8.5-10.1); CREATININE 0.98 mg/dl (0.60-1.20); POTASSIUM 4.3 mmol/L (3.5-5.1)
[2017-07-28] MEDS: METFORMIN HCL 500 MG TAB PO SCH (08:21)
[2017-07-28] MEDS: BuPROPion SR 150 MG TABCR PO SCH (08:21)
[2017-07-28] MEDS: ROPINIROLE HCL 0.25 MG TAB PO SCH (08:22)
[2017-07-28] MEDS: MICONAZOLE NITRATE 2% CR 30 GM TUBE EXT SCH (08:23)
[2017-07-28 08:45] VITALS: BP 120/64; PULSE 68; TEMP 37.3; O2SAT 96
[2017-07-28] MEDS ORDERED: TRIAMTERENE/HCTZ 37.5/25MG TAB PO SCH (09:00)
[2017-07-28] MEDS ORDERED: SERTRALINE HCL 100 MG TAB PO SCH (09:00)
[2017-07-28] MEDS ORDERED: ASPIRIN 81 MG ECTAB PO SCH (09:00)
--- NOTE | 2017-07-28 10:19 | Surgery Progress Note ---
Surgery Progress Note Date of Service July 28, 2017. Subjective Post OP Day: 1 + feeling well Doing well, pain well controlled. Tolerating regular diet. Ambulating without difficulty. Vaginal bleeding is minimal. Wants to go home today. Objective Vital Signs: Date Time Temp Pulse Resp B/P (MAP) Pulse Ox O2 Delivery O2 Flow Rate FiO2 07/28/17 08:45 37.3 68 18 120/64 (82) 96 Room Air 07/28/17 08:45 96 Room Air 07/28/17 04:10 37.0 86 16 111/58 (75) 93 Room Air 07/27/17 23:15 36.7 100 18 103/60 (74) 93 Room Air 07/27/17 23:15 Room Air 07/27/17 19:40 36.8 100 18 127/80 (96) 93 Room Air 07/27/17 17:45 36.4 93 18 104/68 (80) 94 Room Air 07/27/17 16:45 36.3 72 18 111/72 (85) 90 Room Air 07/27/17 15:45 36.5 67 18 110/72 (85) 96 Nasal Cannula 2.0 07/27/17 15:15 36.3 66 16 121/74 (90) 94 Nasal Cannula 2.0 07/27/17 14:43 36.5 60 16 153/83 (106) 94 Room Air 07/27/17 14:43 94 Nasal Cannula 2.0 07/27/17 14:27 60 12 98 07/27/17 14:27 60 12 07/27/17 14:26 155/88 07/27/17 14:22 56 14 07/27/17 14:22 56 14 97 07/27/17 14:21 153/78 07/27/17 14:18 36.3 97 Nasal Cannula 2 07/27/17 14:17 57 15 96 07/27/17 14:17 57 15 07/27/17 14:16 155/82 07/27/17 14:15 65 14 07/27/17 14:15 65 14 95 07/27/17 14:11 153/77 07/27/17 14:10 59 12 07/27/17 14:10 59 12 97 07/27/17 14:05 59 13 142/71 97 07/27/17 14:05 59 13 07/27/17 14:04 63 24 95 07/27/17 14:04 63 24 07/27/17 13:59 61 17 100 07/27/17 13:59 60 17 07/27/17 13:56 148/70 07/27/17 13:54 61 20 07/27/17 13:54 61 20 97 07/27/17 13:53 60 18 07/27/17 13:53 62 18 98 07/27/17 13:51 137/79 07/27/17 13:48 60 12 07/27/17 13:48 60 12 156/82 97 07/27/17 13:43 69 12 07/27/17 13:43 73 12 97 07/27/17 13:41 141/74 07/27/17 13:38 155/85 07/27/17 13:38 36.0 74 16 155/85 96 Oxymask 10 General Appearance: WD/WN, no apparent distress Respiratory/Chest: chest non-tender, lungs clear, normal breath sounds, no respiratory distress, no accessory muscle use Cardiovascular: regular rate, rhythm, no edema, no gallop, no JVD, no murmur Abdomen: normal bowel sounds, non tender, non distended, soft, no organomegaly , no pulsatile mass Incision(s): clean, dry, intact Extremities: normal range of motion, non-tender, normal inspection, no pedal edema, no calf tenderness, normal capillary refill, pelvis stable Laboratory Results: Results Past 24 Hours Test 07/27/17 13:43 07/27/17 19:02 07/28/17 06:42 Range/Units Bedside Glucose 139 70-90 mg/dl Hemoglobin 13.4 12.5 12.0-16.0 g/dL Hematocrit 39.7 37.6 37-47 % White Blood Count 9.45 4.8-10.8 K/uL Red Blood Count 4.16 4.2-5.4 M/uL Mean Corpuscular Volume 90.4 80-100 fL Mean Corpuscular Hemoglobin 30.0 25-34 pg Mean Corpuscular Hemoglobin Concent 33.2 32-36 g/dl Platelet Count 245 130-400 K/uL Mean Platelet Volume 8.9 7.4-10.4 fL Neutrophils (%) (Auto) 68.8 % Lymphocytes (%) (Auto) 23.9 % Monocytes (%) (Auto) 6.5 % Eosinophils (%) (Auto) 0.5 % Basophils (%) (Auto) 0.1 % Neutrophils # (Auto) 6.50 1.4-6.5 K/uL Lymphocytes # (Auto) 2.26 1.2-3.4 K/uL Monocytes # (Auto) 0.61 0.11-0.59 K/uL Eosinophils # (Auto) 0.05 0-0.5 K/uL Basophils # (Auto) 0.01 0-0.2 K/uL RDW Standard Deviation 43.8 36.4-46.3 fL RDW Coefficient of Variation 13.4 11.5-14.5 % Immature Granulocyte % (Auto) 0.2 % Immature Granulocyte # (Auto) 0.02 0.00-0.02 K/uL Sodium Level 140 136-145 mmol/L Potassium Level 4.3 3.5-5.1 mmol/L Chloride Level 106 98-107 mmol/L Carbon Dioxide Level 30 21-32 mmol/L Anion Gap 4.0 3-11 mmol/L Blood Urea Nitrogen 12 7-18 mg/dl Creatinine 0.98 0.60-1.20 mg/dl Est Creatinine Clear Calc Drug Dose 92.5 ml/min Estimated GFR () 73.7 Estimated GFR (Non- 63.6 BUN/Creatinine Ratio 12.1 10-20 Random Glucose 174 70-99 mg/dl Calcium Level 8.6 8.5-10.1 mg/dl Assessment & Plan POD # 1 s/p TLH with BSO, cystoscopy -D/C home today -F/u in 1-2 weeks for postop visit
[2017-07-28] MEDS ORDERED: MTR600X PO (10:20)
[2017-07-28] MEDS ORDERED: OXYC-57 PO (10:20)
--- NOTE | 2017-07-28 10:23 | Discharge Instructions ---
Discharge Instructions Date of Service July 28, 2017. Admission Reason for Admission: Complex Hyperplasia W/Atypia, Post-Menopausal Blee Discharge Discharge Diagnosis / Problem: S/P Total Laparoscopic hysterectomy with BSO, Cystoscopy Discharge Goals Goal(s): Routine recovery after surgery Activity Recommendations Activity Limitations: per Instructions/Follow-up section . Instructions / Follow-Up Instructions / Follow-Up POST OPERATIVE: BOWEL FUNCTION/MEDICATIONS: 1. Constipation pain and discomfort are the most common complaints 5-7 days after surgery. Points 2-6 address the things that can help. 2. Chewing gum can help stimulate the gut and help improve digestion and motility. 3. Milk of Magnesia 1-2 times per day until return of bowel function. 4. Colace is a stool softener that helps. Taking this 2-3 times per day until bowel function returns to normal is highly recommended. 5. Dulcolax is a laxative that may be used if several days have passed without a bowel movement. Alternatively Miralax may be used daily instead. 6. Drink plenty of fluids as this will also reduce constipation. 7. Narcotic pain medications will be prescribed by your physician. They are safe to use and we encourage you to use them. If you are not allergic, ibuprofen will also be prescribed. Many patients will be able to transition off of the narcotic medications to ibuprofen by postoperative day 3. ACTIVITY RECOMMENDATIONS: 1. Get plenty of rest and listen to your body. If you are tired, take a nap. 2. You may shower, but do not take a tub bath until you see your doctor at the 2 week post operative visit. 3. Absolutely NO intercourse and nothing in the vagina until you are examined by your doctor at the 6 week visit. At that visit it will be determined when such activities can be resumed. This can range from 6-12 weeks after your surgery depending on healing time. 4. The main physical activity in the first week should be walking. By the second week you can slowly increase activity. There are no limits on walking up and down stairs. 5. Do not lift more than 5-10 lbs for 4 weeks. Remember the "one-handed rule", i.e. if you can lift something with only one hand it's likely okay. 6. Minimize vegetable sorter like vacuuming and exercising for 4 weeks. "Overdoing it" can lead to incisions not healing, pain and vaginal bleeding , so again, listen to your body. 7. Driving can be resumed when you feel able. Do not drive within 24 hours of taking a narcotic medication. EXPECTATIONS: 1. Vaginal spotting, bleeding and discharge are common after surgery. There may even be an odor to the discharge which is often related to sutures used in the vagina. If you experience heavy vaginal bleeding, call the office number day or night [phone]. 2. Bladder discomfort is common after surgery from the catheter. This usually resolves in 1-2 weeks. 3. By the end of the 3rd or 4th week you should be feeling much better. It may take up to 6 weeks for your energy levels to return to normal. 4. Narcotic medications have side effects such as: dizziness, headache, nausea and/or vomiting. If you suspect your pain medication is causing problems, call our office and we may be able to prescribe an alternate medication. 5. The skin incisions are often covered with a liquid bandage. This will gradually peel off over time. CALL THE OFFICE IF YOU HAVE ANY OF THE FOLLOWIN. Temperature of 101 degrees or higher. 2. Severe abdominal or pelvic pain not relieved by pain medication. 3. Persistent nausea or vomiting. 4. Increased pain with urination or difficulty urinating. 5. Bright red bleeding that soaks more than 1 pad per hour. CONTACT PHONE NUMBERS: Main Office: [phone] FOLLOW-UP: Post-Operative Appointments: * Individual instructions will have been given about the timing of your first examination, but this is usually at the end of the second week home. * You will need to call the office at [phone] soon after discharge to make the appointment for your post-op check-up if it has not already been scheduled. * Additional information regarding activity, sexual intercourse and when to return to work will be given at this appointment. WE WISH YOU A SPEEDY RECOVERY! Current Hospital Diet Patient's current hospital diet: Diabetes Type 2 Diet Discharge Diet Recommended Diet: Regular Diet Procedures Procedures Performed: Total Laparoscopic Hysterectomy with Bilateral Salpingo-Oophorectomy; Cystoscopy Pending Studies Studies pending at discharge: no Medical Emergencies . Who to Call and When: Medical Emergencies: If at any time you feel your situation is an emergency, please call 911 immediately. . Non-Emergent Contact Non-Emergency issues call your: Primary Care Provider, Division Order Technician . . "Provider Documentation" section prepared by Mike Hernandez. [facility] Search Results: no issues identified
--- NOTE | 2017-07-28 10:34 | Discharge Summary ---
Discharge Summary Date of Service July 28, 2017. Discharge Summary Admission Date: July 27, 2017 at 08:45 Discharge Date: July 28, 2017 Discharge Disposition: Home Principal Diagnosis: Postmenopausal Bleeding, Complex hyperplasia with atypia Procedures: Total Laparoscopic Hysterectomy with BSO, Cystoscopy Medication Reconciliation New Medications: Ibuprofen (Ibuprofen) 600 Mg Tab 600 MG PO Q4H PRN for Pain, MCCORMACK, Cramping, Edema, #30 TAB Oxycodone/Acetaminophen 5MG/325MG (Percocet 5MG/325MG) Tab 1-2 TAB PO Q4H PRN for MCCORMACK, Cramping, edema, #20 TAB PAIN Continued Medications: Aspirin (Aspirin Ec) 81 Mg Tab 81 MG PO QAM Uvvalxq-Cuypalthzycli-Oyqawjro (Pamprin Max) 1 Tab Tab 1 TAB PO QD PRN for Migraine Bupropion HCl (Bupropion HCl Sr) 150 Mg Tabcr 150 MG PO BID Levothyroxine Sodium (Synthroid) 150 Mcg Tab 150 MCG PO QAM Metformin HCl (Metformin HCl) 500 Mg Tab 500 MG PO BID Ropinirole (Requip) 0.25 Mg Tab 0.5 MG PO BID, TAB Rosuvastatin Calcium (Rosuvastatin Calcium) 20 Mg Tab 20 MG PO HS Sertraline (Zoloft) 100 Mg Tab 100 MG PO QAM, TAB Trazodone Hcl (Trazodone) 100 Mg Tab 100 MG PO HS Triamterene/Hctz (Triamterene/Hctz 37.5-25MG) 1 Tab Tab 1 TAB PO QAM, TAB Admission Information HPI (per Admitting provider): Patient is a 56 y/o Female with a history of postmenopausal bleeding that underwent an endometrial biopsy that showed complex hyperplasia with atypia. After counseling about her options and recommendations she has decided to proceed with a TLH with BSO. Risks, benefits and alternatives were discussed and informed consent was signed. Physical Exam (per Admitting): General Appearance: WD/WN, no apparent distress, + obese Respiratory/Chest: chest non-tender, lungs clear Cardiovascular: regular rate, rhythm Abdomen/GI: normal bowel sounds, non tender, soft Genitourinary - Female: external genitalia normal, normal pelvic exam, uterus normal shape and size, normal ovaries and adnexa Extremities/Musculoskelatal: normal inspection, no calf tenderness, normal range of motion Neurologic/Psych: alert, oriented x 3 Skin: normal color, warm/dry, no rash Hospital Course Patient underwent her scheduled TLH with BSO and cystoscopy on the day of admission without complication. Her postop recovery was uneventful. Her quiroga catheter was removed on POD # 1 and was able to void after. Her diet and activity were advanced as tolerated. Her incision dressings were removed and were clean, dry and intact. She had minimal vaginal bleeding. She remained afebrile. She was discharged on POD # 1 with discharge instructions. Total time spent on discharge = 20mins This includes examination of the patient, discharge planning, medication reconciliation, and communication with other providers. Discharge Instructions POST OPERATIVE: BOWEL FUNCTION/MEDICATIONS: 1. Constipation pain and discomfort are the most common complaints 5-7 days after surgery. Points 2-6 address the things that can help. 2. Chewing gum can help stimulate the gut and help improve digestion and motility. 3. Milk of Magnesia 1-2 times per day until return of bowel function. 4. Colace is a stool softener that helps. Taking this 2-3 times per day until bowel function returns to normal is highly recommended. 5. Dulcolax is a laxative that may be used if several days have passed without a bowel movement. Alternatively Miralax may be used daily instead. 6. Drink plenty of fluids as this will also reduce constipation. 7. Narcotic pain medications will be prescribed by your physician. They are safe to use and we encourage you to use them. If you are not allergic, ibuprofen will also be prescribed. Many patients will be able to transition off of the narcotic medications to ibuprofen by postoperative day 3. ACTIVITY RECOMMENDATIONS: 1. Get plenty of rest and listen to your body. If you are tired, take a nap. 2. You may shower, but do not take a tub bath until you see your doctor at the 2 week post operative visit. 3. Absolutely NO intercourse and nothing in the vagina until you are examined by your doctor at the 6 week visit. At that visit it will be determined when such activities can be resumed. This can range from 6-12 weeks after your surgery depending on healing time. 4. The main physical activity in the first week should be walking. By the second week you can slowly increase activity. There are no limits on walking up and down stairs. 5. Do not lift more than 5-10 lbs for 4 weeks. Remember the "one-handed rule", i.e. if you can lift something with only one hand it's likely okay. 6. Minimize emissions repair technician like vacuuming and exercising for 4 weeks. "Overdoing it" can lead to incisions not healing, pain and vaginal bleeding , so again, listen to your body. 7. Driving can be resumed when you feel able. Do not drive within 24 hours of taking a narcotic medication. EXPECTATIONS: 1. Vaginal spotting, bleeding and discharge are common after surgery. There may even be an odor to the discharge which is often related to sutures used in the vagina. If you experience heavy vaginal bleeding, call the office number day or night [phone]. 2. Bladder discomfort is common after surgery from the catheter. This usually resolves in 1-2 weeks. 3. By the end of the 3rd or 4th week you should be feeling much better. It may take up to 6 weeks for your energy levels to return to normal. 4. Narcotic medications have side effects such as: dizziness, headache, nausea and/or vomiting. If you suspect your pain medication is causing problems, call our office and we may be able to prescribe an alternate medication. 5. The skin incisions are often covered with a liquid bandage. This will gradually peel off over time. CALL THE OFFICE IF YOU HAVE ANY OF THE FOLLOWIN. Temperature of 101 degrees or higher. 2. Severe abdominal or pelvic pain not relieved by pain medication. 3. Persistent nausea or vomiting. 4. Increased pain with urination or difficulty urinating. 5. Bright red bleeding that soaks more than 1 pad per hour. CONTACT PHONE NUMBERS: Main Office: [phone] FOLLOW-UP: Post-Operative Appointments: * Individual instructions will have been given about the timing of your first examination, but this is usually at the end of the second week home. * You will need to call the office at [phone] soon after discharge to make the appointment for your post-op check-up if it has not already been scheduled. * Additional information regarding activity, sexual intercourse and when to return to work will be given at this appointment. WE WISH YOU A SPEEDY RECOVERY!
[2017-07-28 10:50] VITALS: BP 120/64; PULSE 68; TEMP 37.3; O2SAT 96
== END 2017-07-28 10:50 | disposition home or self-care (01) | DRG 743 ==
LOC: C.ACU 08:20 → C.MS4N 08:45 → ENRESERV 14:10
PROVIDERS: ADMIT Obstetrics & Gynecology; ATTEND Obstetrics & Gynecology
PROC: 0UT9FZZ Resection of Uterus, Via Natural or Artificial Opening With Percutaneous Endoscopic Assistance (ICD-10-PCS; principal; 2017-07-27 10:25)
PROC: 0UT2FZZ Resection of Bilateral Ovaries, Via Natural or Artificial Opening With Percutaneous Endoscopic Assistance (ICD-10-PCS; principal; 2017-07-27 10:25)
PROC: 0UT7FZZ Resection of Bilateral Fallopian Tubes, Via Natural or Artificial Opening With Percutaneous Endoscopic Assistance (ICD-10-PCS; principal; 2017-07-27 10:25)
DX: N85.01 Benign endometrial hyperplasia (principal); F32.9 Major depressive disorder, single episode, unspecified; I10 Essential (primary) hypertension; E03.9 Hypothyroidism, unspecified; G47.33 Obstructive sleep apnea (adult) (pediatric); Z79.899 Other long term (current) drug therapy